=== PATIENT | female | born 1990 | race Asian ===

== ENCOUNTER 2018-01-04 02:20 | Emergency (ER) | payer OTHER ==
[~2018-01-04] VITALS: Ht 160 cm; Wt 59.0 kg
[2018-01-04 03:27] LABS: ABSOLUTE NEUTROPHILS 14.3 thou/uL (1.4-8.2); BASOPHILS 0.2 % (0.0-2.0); EOSINOPHILS 0.6 % (0.0-3.0); HEMATOCRIT 41.8 % (37.0-47.0); HEMOGLOBIN 14.6 gm/dL (12.0-15.0); LYMPHOCYTES 5.5 % (24.0-44.0); MCH 29.6 pg (26.0-34.0); MCHC 34.8 g/dL (28.0-37.0); MCV 85.1 fL (80.0-100.0); MONOCYTES 4.9 % (1.0-8.0); PLATELET COUNT 304 thou/uL (150-400); POLYS 88.8 % (36.0-66.0); RBC 4.91 mil/uL (4.20-5.00); RDW 12.7 % (10.5-14.5); WBC 16.1 thou/uL (4.0-11.0)
[2018-01-04 03:33] LABS: CALCIUM 9.6 mg/dL (8.5-10.1); CREATININE 0.8 mg/dL (0.6-1.0); POTASSIUM 3.5 mmol/L (3.5-5.1)
[2018-01-04 03:39] LABS: ALBUMIN 4.3 g/dL (3.4-5.0); TOTAL BILIRUBIN 0.5 mg/dL (<0.1-1.0); TOTAL PROTEIN 8.6 g/dL (6.4-8.2)
[2018-01-04] MEDS ORDERED: ZOFRAN ODT8 MG PO (04:13)
[2018-01-04 05:07] LABS: URINE BILIRUBIN NEGATIVE (Negative); URINE BLOOD NEGATIVE (Negative); URINE CLARITY CLEAR; URINE COLOR YELLOW; URINE GLUCOSE-RANDOM* NEGATIVE (Negative); URINE KETONES NEGATIVE (Negative); URINE LEUKOCYTES-REFLEX NEGATIVE (Negative); URINE NITRITE-REFLEX NEGATIVE (Negative); URINE PROTEIN (DIPSTICK) NEGATIVE (Negative); URINE SPECIFIC GRAVITY 1.025 (1.005-1.035); URINE UROBILINOGEN 0.2 E.U./dl (0.2-1.0)
[2018-01-04 05:54] VITALS: BP 109/76
== END 2018-01-04 06:02 | disposition home or self-care (01) ==
LOC: ER 02:20
PROVIDERS: Emergency Medicine
DX: R11.2 Nausea with vomiting, unspecified (principal); R19.7 Diarrhea, unspecified; R10.9 Unspecified abdominal pain; D72.829 Elevated white blood cell count, unspecified

== ENCOUNTER 2018-04-24 04:16 | Emergency (ER) | payer OTHER ==
[~2018-04-24] VITALS: Ht 160 cm; Wt 54.4 kg
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
[~2018-04-24 04:16] MED LIST: ZOFRAN ODT8 MG PO
[2018-04-24 04:51] LABS: ABSOLUTE NEUTROPHILS 6.5 thou/uL (1.4-8.2); BASOPHILS 0.3 % (0.0-2.0); EOSINOPHILS 1.4 % (0.0-3.0); HEMATOCRIT 39.9 % (37.0-47.0); HEMOGLOBIN 13.7 gm/dL (12.0-15.0); LYMPHOCYTES 20.2 % (24.0-44.0); MCH 29.5 pg (26.0-34.0); MCHC 34.3 g/dL (28.0-37.0); PLATELET COUNT 247 thou/uL (150-400); POLYS 69.1 % (36.0-66.0); RBC 4.64 mil/uL (4.20-5.00); RDW 11.9 % (10.5-14.5); WBC 9.5 thou/uL (4.0-11.0)
[2018-04-24 04:58] LABS: ANION GAP 11 mmol/L (7-16); BUN 12 mg/dL (7-18); CALCIUM 9.8 mg/dL (8.5-10.1); CHLORIDE 102 mmol/L (98-107); CO2 25 mmol/L (21-32); CREATININE 0.8 mg/dL (0.6-1.0); GLUCOSE 116 mg/dL (74-106); POTASSIUM 3.2 mmol/L (3.5-5.1); SODIUM 138 mmol/L (136-145)
[2018-04-24 05:07] LABS: SGOT 16 U/L (15-37); SGPT 34 U/L (30-65); TOTAL BILIRUBIN 0.7 mg/dL (<0.1-1.0); TOTAL PROTEIN 8.6 g/dL (6.4-8.2); TROPONIN-I <0.06 ng/mL (<0.06)
[2018-04-24] MEDS ORDERED: LOPRESSOR25 PO (08:47)
[2018-04-24 08:54] VITALS: BP 107/75
== END 2018-04-24 09:03 | disposition home or self-care (01) ==
LOC: ER 04:16
PROVIDERS: Student in an Organized Health Care Education/Training Program
DX: R00.0 Tachycardia, unspecified (principal); E05.90 Thyrotoxicosis, unspecified without thyrotoxic crisis or storm

== ENCOUNTER 2019-05-27 10:07 | Emergency (ER) | payer OTHER ==
[~2019-05-27] VITALS: Ht 160 cm; Wt 55.8 kg
[~2019-05-27 10:07] MED LIST changes: +LOPRESSOR25 PO
[2019-05-27 11:45] LABS: HEMATOCRIT 44.7 % (37.0-47.0); HEMOGLOBIN 14.7 gm/dL (12.0-15.0); MCH 28.9 pg (26.0-34.0); MCHC 32.8 g/dL (28.0-37.0); PLATELET COUNT 287 thou/uL (150-400); RBC 5.08 mil/uL (4.20-5.00); RDW 12.9 % (10.5-14.5); WBC 5.4 thou/uL (4.0-11.0)
[2019-05-27 11:51] LABS: CALCIUM 9.9 mg/dL (8.5-10.1); CREATININE 0.8 mg/dL (0.6-1.0); POTASSIUM 3.8 mmol/L (3.5-5.1)
[2019-05-27 11:57] LABS: ALBUMIN 4.8 g/dL (3.4-5.0); TOTAL BILIRUBIN 0.4 mg/dL (<0.1-1.0); TOTAL PROTEIN 9.1 g/dL (6.4-8.2)
[2019-05-27 12:04] LABS: ABSOLUTE NEUTROPHILS 3.3 thou/uL (1.4-8.2)
[2019-05-27 12:46] VITALS: BP 114/77
== END 2019-05-27 12:47 | disposition home or self-care (01) ==
LOC: ER 10:07
PROVIDERS: Nurse Practitioner
DX: R11.2 Nausea with vomiting, unspecified (principal); R19.7 Diarrhea, unspecified; Z98.890 Other specified postprocedural states; Z88.6 Allergy status to analgesic agent